=== PATIENT | male | born 1975 | race Caucasian/White ===

== ENCOUNTER 2016-07-01 12:40 | Emergency (ER) | payer BC ==
[2016-07-01] MEDS ORDERED: LIDOCAINE HCL 20 ML VIAL ONE (13:01)
--- NOTE | 2016-07-01 13:19 | ERNOTE ---
Integumentary HPI - Narrative Date of Service: 07/01/16 - General Presenting Symptoms: abscess Time Seen by Provider: 07/01/16 12:55 Source: patient, RN notes reviewed, old records Exam Limitations: no limitations - Immun/Allergies/Home Medications Immunizations: IMMUNIZATION HX Immunizations Up to Date No History of Influenza Vaccine No Hx Pneumococcal Vaccination No Allergies/Adverse Reactions: Allergies Allergy/AdvReac Type Severity Reaction Status Date / Time No Known Allergies Allergy Verified 07/01/16 12:50 Home Medications: HOME MEDICATIONS NK [No Home Medication] 06/07/16 [Last Taken Unknown] - Pain Pain Score: 10 - History of Present Illness Narrative: 41 y/o male ambulatory to the ED for an infection to the volar distal aspect of his right thumb. It began swelling 2 days ago and has been getting increasing more inflamed and painful. He was seen in the walk-in clinic where an I&D was attempted with no anesthesia. He was unable to tolerate the procedure and was sent here. He denies any prior skin infections or abscesses, but does report having a "brown recluse spider bite" that required an I&D 2 years ago. Date (Duration): 06/29/16 Exposure: Reports: no cause identified Prior Treatment: Denies: recently seen, currently on antibiotics Review of Systems - Review of Systems Constitutional: Absent: fever, malaise EYE: Present: no symptoms reported ENT: Present: no symptoms reported Respiratory: Present: no symptoms reported Cardiology: Present: no symptoms reported Gastrointestinal/Abdominal: Absent: nausea, vomiting, eating less, drinking less Genitourinary: Present: no symptoms reported Musculoskeletal: Absent: joint pain, joint swelling Skin: Present: lesions, change in color. Absent: rash Neurological: Absent: headache, weakness Endocrine: Present: no symptoms reported Hematologic/Lymphatic: Absent: easy bruising, easy bleeding Psych: Present: no symptoms reported - Patient's Past Medical History Patient History - Medical: No pertinent hx Patient History - Cardiac/Respiratory: No pertinent hx Patient History - Cancer: No Hx of Cancer Patient History - Surgical Procedures: Appendectomy, Vasectomy Patient History - Other: None - Social History Living Situations: home Abuse History: No History of abuse Psych History: No pertinent hx Smoking Status: Never smoker Do you dip or chew tobacco: Yes Alcohol Use: occasionally Drug Use: none - Immunizations Immunizations Up to Date: Yes - reports last tetanus 3 yrs ago Hx Pneumococcal Vaccination: No History of Influenza Vaccine: No Physical Exam - Physical Exam General Appearance: Present: wd/wn, alert, mild distress, anxious Respiratory: Present: no respiratory distress, no accessory muscle use Cardiovascular/Chest: Present: normal peripheral pulses Extremity Exam: Present: normal range of motion, extremity edema - mild, right distal thumb. Absent: joint redness, joint swelling Neurological Exam: Present: alert, oriented, normal mood/affect, no motor/ sensory deficits Skin Exam: Present: warm/dry, other - small abscess to right volar distal thumb with surrounding erythema ED Progress - Vital Signs Patient's Vital Signs:: I have reviewed the patient's vital signs. Vital Signs: Vital Signs 07/01/16 12:45 Temperature 36.2 C L Pulse Rate 72 Respiratory 15 Rate Blood Pressure 163/92 O2 Sat by Pulse 98 Oximetry - Progress/Reassessment Chief Complaint: Cellulitis Progress:: Improved Procedures Right Distal Volar Hand 1st Digit Anesthesia: 1% Lidocaine, Digital Block I & D Prep: betadine prep, sterile dressing applied Blade Size: 11 Findings and Actions: purulent drainage small Complications: Pt rosy procedure well Departure Clinical Impression: Abscess - Departure Disposition: Home self-care Condition: Good Instructions: Abscess, [id number] Additional Instructions: Keep wound clean - soak in warm, soapy water 3 times a day Ibuprofen for pain if needed 800 mg every 8 hours with food Return for fever, worsening pain, increasing redness or other concerns
[2016-07-01 13:49] VITALS: BP 132/75
== END 2016-07-01 13:43 | disposition home or self-care (01) ==
LOC: ER 12:40
PROC: 0H9FXZZ Drainage of Right Hand Skin, External Approach (ICD-10-PCS; principal; 2016-07-01)
DX: L02.511 Cutaneous abscess of right hand (principal); F17.220 Nicotine dependence, chewing tobacco, uncomplicated

== ENCOUNTER 2016-07-02 08:17 | Emergency (ER) | payer BC ==
--- NOTE | 2016-07-02 09:25 | ERNOTE ---
<Silver Butt - Last Filed: 07/02/16 09:15> Integumentary HPI - General Presenting Symptoms: abscess Time Seen by Provider: 07/02/16 09:15 Source: patient Exam Limitations: no limitations - Immun/Allergies/Home Medications Immunizations: IMMUNIZATION HX Immunizations Up to Date Yes History of Influenza Vaccine No Hx Pneumococcal Vaccination Yes Allergies/Adverse Reactions: Allergies Allergy/AdvReac Type Severity Reaction Status Date / Time No Known Allergies Allergy Verified 07/02/16 08:28 Home Medications: HOME MEDICATIONS NK [No Home Medication] 06/07/16 [Last Taken Unknown] - Pain Pain Score: 7 - History of Present Illness Narrative: right thumb pad began to be red and sore 2 days ago. Presented to the walk in clinic yesterday where I & D was attempted without anesthesia. Sent to this ED and I & D was attempted under ring block. Minimal purlent material was removed. Pain continues to worsen, throbbing, 7/10. Location: Reports: hands Quality: Reports: painful Severity: moderate Exposure: Reports: no cause identified Modifying Factors - (Improves): Reports: other - hydrocodone Associated Symptoms: Reports: other - joint pain and stiffness Prior Treatment: Reports: recently seen, treated by physician. Denies: currently on antibiotics Review of Systems - Review of Systems Constitutional: Absent: fever EYE: Present: no symptoms reported ENT: Present: no symptoms reported Respiratory: Present: no symptoms reported Cardiology: Present: no symptoms reported Gastrointestinal/Abdominal: Present: no symptoms reported Genitourinary: Present: no symptoms reported Musculoskeletal: Present: See HPI, joint pain Skin: Present: See HPI Neurological: Present: no symptoms reported Endocrine: Present: no symptoms reported Hematologic/Lymphatic: Present: no symptoms reported Psych: Present: no symptoms reported - Patient's Past Medical History Patient History - Medical: No pertinent hx Patient History - Cardiac/Respiratory: No pertinent hx Patient History - Cancer: No Hx of Cancer Patient History - Surgical Procedures: Appendectomy, Vasectomy, Other Patient History - Other: None - Social History Living Situations: home Abuse History: No History of abuse Psych History: No pertinent hx Smoking Status: Never smoker Do you dip or chew tobacco: Yes Alcohol Use: occasionally Drug Use: none - Immunizations Immunizations Up to Date: Yes Hx Pneumococcal Vaccination: Yes History of Influenza Vaccine: No Physical Exam - Physical Exam General Appearance: Present: wd/wn, alert, no apparent distress Peripheral Pulses: N=norm/S=strong/W=weak/B=bound/A=absent: Radial (R): Normal Extremity Exam: Present: joint redness, joint swelling - right thumb DIP joint Neurological Exam: Present: alert, oriented, normal mood/affect, no motor/ sensory deficits Skin Exam: Present: other - right distal phalanx pad swollen with scabbed area in the center of the pad. Erythema and swelling most in the pad and along the medial nail ED Progress - Vital Signs Vital Signs: Vital Signs 07/02/16 08:20 Temperature 36.4 C L Pulse Rate 80 Respiratory 15 Rate Blood Pressure 129/88 O2 Sat by Pulse 100 Oximetry - Progress/Reassessment Chief Complaint: Cellulitis - Transfer of Care Physician Sign Out: Silver Butt Receiving Physician: Mary Escobedo Pending Results: Labs Expected Disposition: Discharge Departure Clinical Impression: Abscess, Cellulitis of finger of right hand - Departure Disposition: Home self-care Condition: Good Instructions: Cellulitis, Adult, [id number] Additional Instructions: go to Dr Stallings's office now, he will decide on further treatment Referrals: Michael Stallings MD [Staff Physician] - <Mary Escobedo - Last Filed: 07/02/16 10:23> Integumentary HPI - Immun/Allergies/Home Medications Immunizations: IMMUNIZATION HX Immunizations Up to Date Yes History of Influenza Vaccine No Hx Pneumococcal Vaccination Yes ED Progress - Results and Orders Patient's Lab Results:: I have reviewed the patient's lab results. - Vital Signs Patient's Vital Signs:: I have reviewed the patient's vital signs. Vital Signs: Vital Signs 07/02/16 07/02/16 08:20 09:48 Temperature 36.4 C L 36.4 C L Pulse Rate 80 72 Respiratory 15 16 Rate Blood Pressure 129/88 152/100 O2 Sat by Pulse 100 98 Oximetry - Progress/Reassessment Progress Note-Subjective: 07/02/16 09:55 patient denies any injury to thumb, two days of erythema, I&D yesterday, took his fiancee's clindamycin one dose last night, no other antibiotic, since yesterday the swelling, erythema and pain has increased Exam: right thumb swollen, red, and tender, I&D site: no drainage, decreased sensation , unable to flex IP joint discussed lab results and diagnosis with patient 07/02/16 10:[address] Stallings, give Dipeshef IM and send to ortho clinic
[2016-07-02 09:29] LABS: Hematocrit 46.5 % (42.0-52.0); Hemoglobin 16.1 gm/dL (13.5-18.0); Mean Cell Volume 89.1 fl (78-100); Mean Corpuscular Hemoglobin 30.8 pg (27-31); Mean Corpuscular Hgb Conc 34.6 g/dl (32-36); Mean Platelet Volume 9.1 fl (6.0-9.5); Neutrophil % 76.2 % (42-75.0); Platelet Count 291 K/mm3 (150-450); Red Blood Count 5.22 M/mm3 (4.7-6.0); Red Cell Distribution Width 12.7 % (11.5-14.0); White Blood Count 10.4 K/mm3 (4.0-10.5)
[2016-07-02 09:50] VITALS: BP 152/100
[2016-07-02] MEDS ORDERED: ceFAZolin SODIUM 1 GM VIAL IM ONE (10:04)
[2016-07-02] MEDS ORDERED: ceFAZolin SODIUM 1 GM VIAL ONE (10:09)
== END 2016-07-02 10:16 | disposition home or self-care (01) ==
LOC: ER 08:17
DX: L02.511 Cutaneous abscess of right hand (principal); L03.011 Cellulitis of right finger